=== PATIENT | male | born 1995 | race Caucasian/White ===

== ENCOUNTER 2017-09-21 08:14 | Emergency (ER) | payer BC ==
[~2017-09-21] VITALS: Ht 182.9 cm; Wt 90.0 kg
[2017-09-21 08:15] VITALS: BP 168/97; PULSE 88; RESP 16; TEMP 98.7; O2SAT 98
[2017-09-21] MEDS ORDERED: TEST1GEL15 TOPICAL (08:23)
--- NOTE | 2017-09-21 08:29 | PD ---
HPI Chief Complaint: Complaint Time Seen by Provider: 08:20 Travel History International Travel<30 days: No Contact w/Intl Traveler<30days: No Traveled to known affect area: No History of Present Illness HPI 22 y/o male presents with bilateral scrotal pain for the past couple weeks. He states he went to an urgent care yesterday and was told to come here. He denies any penile discharge, history of STD, hematuria, trauma or other concurrent complaints. He states that he is on testosterone and feels like that may be has something to do with that. He states that he currently does not have a specialist see her as he recently moved from [place]. Quality of pain is pressure. Severity is currently mild. [facility] Past Medical History Medical History: Denies Significant Hx Past Surgical History Surgical History: No Previous Surgery Social History Alcohol Use: Yes Tobacco Use: Yes Substance Use: No Allergies-Medications (Allergen,Severity, Reaction): Coded Allergies: No Known Allergies (Unverified , 09/21/17) Reported Meds & Prescriptions Reported Meds & Active Scripts Active Reported Testosterone Topical (Testosterone) 25 Mg/2.5 Gram (1 %) Gel 50 Mg TOPICAL DAILY Review of Systems Except as stated in HPI: all other systems reviewed are Neg Physical Exam Narrative GENERAL: Well-nourished, well-developed patient. SKIN: Warm and dry. HEAD: Normocephalic and atraumatic. EYES: No injection or drainage. ENT: No nasal drainage noted. NECK: Supple, trachea midline. CARDIOVASCULAR: Regular rate and rhythm RESPIRATORY: no increased effort. No accessory muscle use. GASTROINTESTINAL: Abdomen soft, non-tender, nondistended. GENITOURINARY after permission with dumper central concrete mixing plant: Circumcised. Testes descended bilaterally without evidence of rotation. No lesions or erythema. No urethral discharge. Cremasteric reflex intact bilaterally, no swelling noted NEUROLOGICAL: Awake and alert. Motor and sensory grossly within normal limits. Normal speech. Data Data Last Documented VS Vital Signs Date Time Temp Pulse Resp B/P (MAP) Pulse Ox O2 Delivery O2 Flow Rate FiO2 09/21/17 08:15 98.7 88 16 168/97 (120) 98 Room Air Orders Orders Urinalysis - C+S If Indicated (09/21/17 08:24) Gc And Chlamydia Pcr (09/21/17 08:24) Us Testicles W Doppler (09/21/17 08:24) Labs Laboratory Tests Test 09/21/17 08:30 Urine Color LIGHT-YELLOW Urine Turbidity CLEAR Urine pH 6.5 Urine Specific [place] 1.009 Urine Protein NEG mg/dL Urine Glucose (UA) NEG mg/dL Urine Ketones NEG mg/dL Urine Occult Blood NEG Urine Nitrite NEG Urine Bilirubin NEG Urine Urobilinogen LESS THAN 2.0 MG/DL Urine Leukocyte Esterase NEG Urine RBC LESS THAN 1 /hpf Microscopic Urinalysis Comment CULT NOT INDICATED MDM Medical Decision Making Medical Screen Exam Complete: Yes Emergency Medical Condition: Yes Medical Record Reviewed: Yes (past history confirmed) Interpretation(s) Last 24 hours Impressions Scrotum Ultrasound 09/21/17823 Signed Impressions: Service Date/Time: Thursday, September 21, 2017 08:35 - CONCLUSION: Examination is within normal limits. No abnormality is identified to explain the pain. Blood flow is currently symmetric. Nicolas Villafuerte MD ua no acute Differential Diagnosis Torsion, UTI, cyst, epididymitis Narrative Course Will check urinalysis, urine gonorrhea Chlamydia and testicular ultrasound and reevaluate. Patient states no history of STD and no current discharge so will not pretreat Patient denies any new complaints, all questions answered. Patient knows that follow up is incumbent on them and to return to the emergency room immediately if new or worsening symptoms develop. Patient given strict return precautions, vitals reviewed and are normal, agrees to further workup as an outpatient. Diagnosis Primary Impression: Scrotal pain Patient Instructions: General Instructions Additional Instructions: tylenol as needed, set up a primary, return as needed, keep blood pressure log Med/Other Pt SpecificInfo: No Change to Meds Disposition: 01 DISCHARGE HOME Condition: Stable Carito Ramsey MD Sep 21, 2017 08:29
[2017-09-21 08:55] LABS: BLOOD, URINE NEG (NEG); GLUCOSE,URINE NEG (NEG); KETONE, URINE NEG (NEG); NITRITE,URINE NEG (NEG); PH, URINE 6.5 (5.0-8.5); URINE COLOR LIGHT-YELLOW (YELLW/STRAW)
[2017-09-21 08:58] LABS: COMMENT (UR) CULT NOT INDICATED; CULTURE IF INDICATED CULT NOT INDICATED
--- NOTE | 2017-09-21 09:25 | RADRPT ---
EXAM DATE/TIME: 09/21/2017 08:35 [facility] COMPARISON: No previous studies available for comparison. INDICATIONS : Testicular pain. MEDICAL HISTORY : Tobacco use. Testicular pain. SURGICAL HISTORY : None. ENCOUNTER: Initial ACUITY: 3 days PAIN SCORE: 5/10 LOCATION: Bilateral scrotum. MEASUREMENTS: RIGHT TESTICLE: 3.6 x 3.3 x 2.5cm LEFT TESTICLE: 3.7 x 2.8 x 3.0cm FINDINGS: RIGHT TESTICLE: Homogeneous echotexture without intra or extratesticular mass. Blood flow is symmetric and within no rmal limits. No significant hydrocele or varicocele. Epididymis is within normal limits. LEFT TESTICLE: Homogeneous echotexture without intra or extratesticular mass. Blood flow is symmetric and within no rmal limits. No significant hydrocele or varicocele. Epididymis is within normal limits. SCROTUM: Within normal limits. CONCLUSION: Examination is within normal limits. No abnormality is identified to explain the pain. Blood flow is currently symmetric. Nicolas Villafuerte MD on September 21, 2017 at 9:22 Board Certified Radiologist. This report was verified electronically.
[2017-09-21 10:28] LABS: CHLAMYDIA PCR NOT DETECTED (NOT DETECT); NEISSERIA PCR NOT DETECTED (NOT DETECT)
== END 2017-09-21 10:01 | disposition home or self-care (01) ==
LOC: NEPE 08:14
DX: N50.82 Scrotal pain (principal); Z72.0 Tobacco use
CPT/HCPCS: 76870; 81001; 87491; 87591; 93975; 99284